=== PATIENT | male | born 2005 | race Caucasian/White ===

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

== ENCOUNTER 2023-01-18 20:54 | Emergency (ER) | payer MEDICAID ==
[~2023-01-18] VITALS: Ht 185.4 cm; Wt 87.5 kg
[2023-01-18 21:08] VITALS: BP 134/85
--- NOTE | 2023-01-18 21:13 | NUR ---
pt to bed 9 ambulatory
--- NOTE | 2023-01-18 21:13 | NUR ---
Fantasma schwartz in [facility] - 01/18/23 at 2115 by VANDA pt to bed 12 ambulatory
--- NOTE | 2023-01-18 21:24 | NUR ---
Patient resting in bed, A/Ox4, chest rise and fall symmetrical, no s/s of distress, patient on monitor.
[2023-01-18] MEDS ORDERED: ONDANSETRON 4 MG ODT PO ONE (21:30)
[2023-01-18] MEDS ORDERED: KETOROLAC 60 MG/2 ML VIAL IM ONE (21:30)
[2023-01-18] MEDS ORDERED: ROBAC PO (21:31)
[2023-01-18] MEDS ORDERED: IBUP-2213 PO (21:31)
[2023-01-18] MEDS ORDERED: ALBU0.0912 INH (21:31)
[2023-01-18] MEDS ORDERED: PSEU120T23 PO (21:31)
[2023-01-18 21:46] VITALS: BP 128/74
== END 2023-01-18 21:46 | disposition home or self-care (01) ==
LOC: MED 20:54
DX: B34.9 Viral infection, unspecified (principal); Z20.822 Contact with and (suspected) exposure to COVID-19; Z86.69 Personal history of other diseases of the nervous system and sense organs; Z79.899 Other long term (current) drug therapy; Z79.1 Long term (current) use of non-steroidal anti-inflammatories (NSAID)
CPT/HCPCS: 87426; 87804; 96372; 99283; J1885; Q0162

== ENCOUNTER 2023-04-02 10:19 | Emergency (ER) | payer MEDICAID ==
[~2023-04-02] VITALS: Ht 188 cm; Wt 87.5 kg
[~2023-04-02 10:19] MED LIST changes: +ALBU0.0912 INH; +IBUP-2213 PO; +PSEU120T23 PO; +ROBAC PO
[2023-04-02 10:26] VITALS: BP 130/62
--- NOTE | 2023-04-02 10:42 | NUR ---
AMBULATED TO BED IN NO DISTRESS.
[2023-04-02] MEDS ORDERED: FLONAS NS (11:05)
[2023-04-02] MEDS ORDERED: PROM118S5 PO (11:05)
--- NOTE | 2023-04-02 11:15 | NUR ---
Patient discharged with v/s stable. Written and verbal after care instructions given and explained. Patient alert, oriented and verbalized understanding of instructions. Ambulatory with steady gait. All questions addressed prior to discharge. ID band removed. Patient advised to follow up with PMD. Rx of FLONASE NASAL, PROMETHAZINE-DM SYRUP given. Patient educated on indication of medication including possible reaction and side effects. Opportunity to ask questions provided and answered.
[2023-04-02 11:16] VITALS: BP 132/60
== END 2023-04-02 11:16 | disposition home or self-care (01) ==
LOC: MED 10:19
DX: J06.9 Acute upper respiratory infection, unspecified (principal); Z79.899 Other long term (current) drug therapy
CPT/HCPCS: 99283

== ENCOUNTER 2023-12-17 16:05 | Emergency (ER) | payer MEDICAID ==
[~2023-12-17] VITALS: Ht 188 cm; Wt 83.9 kg
[~2023-12-17 16:05] MED LIST changes: +FLONAS NS; +PROM118S5 PO
[2023-12-17 16:09] VITALS: BP 137/90; PULSE 76; RESP 18; TEMP 97.5; O2SAT 98
[2023-12-17] MEDS ORDERED: methylPREDNISolone SS 125 MG/2 ML VIAL ONE (16:11)
[2023-12-17] MEDS ORDERED: diphenhydrAMINE 50 MG/ML VIAL ONE (16:11)
[2023-12-17] MEDS ORDERED: FAMOTIDINE 20 MG/2 ML VIAL ONE (16:12)
[2023-12-17] MEDS ORDERED: methylPREDNISolone SS 125 MG/2 ML VIAL IVP ONE (16:15)
[2023-12-17] MEDS ORDERED: diphenhydrAMINE 50 MG/ML VIAL IVP ONE (16:15)
[2023-12-17] MEDS ORDERED: FAMOTIDINE 20 MG/2 ML VIAL IVP ONE (16:15)
[2023-12-17] MEDS ORDERED: EPIN1KIT31 IM (19:37)
[2023-12-17 19:48] VITALS: BP 108/72; PULSE 63; RESP 16; O2SAT 98
== END 2023-12-17 20:14 | disposition home or self-care (01) ==
LOC: MED 16:05
DX: T63.441A Toxic effect of venom of bees, accidental (unintentional), initial encounter (principal); Z86.69 Personal history of other diseases of the nervous system and sense organs; Z79.899 Other long term (current) drug therapy; Z79.1 Long term (current) use of non-steroidal anti-inflammatories (NSAID); Y92.89 Other specified places as the place of occurrence of the external cause
CPT/HCPCS: 96374; 96375; 99291; J1200; J2930; J3490